=== PATIENT | male | born 1975 | race African-American/Black ===

== ENCOUNTER 2016-07-30 22:32 | Emergency (ER) | payer OTHER ==
[~2016-07-30] VITALS: Ht 190.5 cm; Wt 127.0 kg
[~2016-07-30 22:32] MED LIST: PROAIR HFA0.09 MG/Ac IH; UNK BP MED PO
[2016-07-30 22:47] VITALS: BP 131/91
--- NOTE | 2016-07-31 00:40 | NUR ---
PATIENT LEFT WITHOUT BEING SEEN BY DR. GOODRICH. NO FURTHER CARE PROVIDED FOR PATIENT.
== END 2016-07-31 00:40 | disposition left against medical advice (07) ==
LOC: MED 22:32
DX: R07.89 Other chest pain (principal); J45.909 Unspecified asthma, uncomplicated; I10 Essential (primary) hypertension; Z53.21 Procedure and treatment not carried out due to patient leaving prior to being seen by health care provider

== ENCOUNTER 2018-07-27 20:03 | Emergency (ER) | payer SELFPAY ==
[~2018-07-27] VITALS: Ht 190.5 cm; Wt 144.8 kg
[~2018-07-27 20:03] MED LIST changes: +ALBU-136 IH; -PROAIR HFA0.09 MG/Ac IH; -UNK BP MED PO
[2018-07-27 20:13] VITALS: BP 180/100
[2018-07-27 20:15] VITALS: BP 180/100
--- NOTE | 2018-07-27 20:16 | NUR ---
TO LOBBY A/W BED, AMBULATORY
--- NOTE | 2018-07-27 20:47 | NUR ---
PT TAKEN TO BED 8.
--- NOTE | 2018-07-27 20:48 | NUR ---
43 Y/O M PRESENTED TO ED WITH C/O R SHOULDER PAIN X1 WEEK. 7/10 PAIN, ACHING. DENIES INJURY. LIMITED ROM TO R SHOULDER. PALPABLE BILATERAL RADIAL PULSES. DENIES NUMBNESS AND TINGLING SENSATION. STARTED EXPERIENCING CHEST TIGHTNESS AND DIFFICULTY BREATHING X1 DAY. BILATERAL LUNG VIVAS CLEAR. INTERMINTENT BLURRED VISION. DENIES DIZZINESS AND LIGHTHEADEDNESS. ERMD NOTIFIED. WILL CONTINUE TO MONITOR.
[2018-07-27] MEDS ORDERED: KETOROLAC 60 MG/2 ML VIAL IM ONE (21:45)
--- NOTE | 2018-07-27 22:52 | NUR ---
Dr. Lundberg evaluating patient at bedside.
[2018-07-27] MEDS ORDERED: MORPHINE SULFATE 4 MG/ML SYR IM ONE (22:55)
--- NOTE | 2018-07-27 23:27 | NUR ---
Patient discharged with v/s stable. Written and verbal after care instructions given and explained. Patient alert, oriented and verbalized understanding of instructions. Ambulatory with steady gait. All questions addressed prior to discharge. ID band removed. Patient advised to follow up with PMD. Rx of Motrin and Valium given. Patient educated on indication of medication including possible reaction and side effects. Opportunity to ask questions provided and answered.
== END 2018-07-27 23:27 | disposition home or self-care (01) ==
LOC: MED 20:03
DX: M54.2 Cervicalgia (principal); M25.511 Pain in right shoulder; J45.909 Unspecified asthma, uncomplicated; I10 Essential (primary) hypertension; F17.200 Nicotine dependence, unspecified, uncomplicated; Z79.899 Other long term (current) drug therapy
CPT/HCPCS: 96372; 99283; J1885; J2270

== ENCOUNTER 2018-08-07 21:25 | Emergency (ER) | payer SELFPAY ==
[~2018-08-07] VITALS: Ht 190.5 cm; Wt 143.8 kg
[2018-08-07 21:33] VITALS: BP 157/90
--- NOTE | 2018-08-07 21:35 | NUR ---
TO LOBBY A/W BED, AMBULATORY
--- NOTE | 2018-08-07 23:09 | NUR ---
PT AMBULATED TO ER BED 02
--- NOTE | 2018-08-07 23:24 | NUR ---
BIB FAMILY REPORTS RIGHT SHOULDER PAIN 10/10 X 1 WEEK. STATES IT RADIATED TO NECK. LIMITED ROM DUE TO PAIN. NO SWELLING OR DISCOLORATION NOTED. DENIES OTHER SYMPTOMS AT THIS TIME.
[2018-08-07] MEDS ORDERED: KETOROLAC 60 MG/2 ML VIAL IM ONE (23:25)
[2018-08-08 00:10] VITALS: BP 142/78
--- NOTE | 2018-08-08 00:11 | NUR ---
Patient discharged with v/s stable. Written and verbal after care instructions given and explained. Patient alert, oriented and verbalized understanding of instructions. Ambulatory with steady gait. All questions addressed prior to discharge. ID band removed. Patient advised to follow up with PMD. Rx of MOTRIN, ROBAXIN given. Patient educated on indication of medication including possible reaction and side effects. Opportunity to ask questions provided and answered.
== END 2018-08-08 00:10 | disposition home or self-care (01) ==
LOC: MED 21:25
DX: M54.12 Radiculopathy, cervical region (principal); M25.511 Pain in right shoulder; J45.909 Unspecified asthma, uncomplicated; I10 Essential (primary) hypertension; Z79.899 Other long term (current) drug therapy
CPT/HCPCS: 73030; 96372; 99283; J1885

== ENCOUNTER 2019-01-02 19:26 | Emergency (ER) | payer MEDICAID ==
[~2019-01-02] VITALS: Ht 185.4 cm; Wt 145.1 kg
[2019-01-02 19:35] VITALS: BP 112/85
--- NOTE | 2019-01-02 21:21 | NUR ---
PT AMBULATED TO ER BED 10
--- NOTE | 2019-01-02 21:25 | NUR ---
43 YO M BIB SELF PRESENTS WITH ABSCESS TO RIGHT AXILLA X 2 WEEKS. PT STATES HAS GOTTEN PROGRESSIVELY WORSE. PT STATES HE WENT TO HIS PCP ON SATURDAY AND WAS GIVEN ABT X 3 DAYS. PT STATES IT HAS GOTTEN BIGGER AND HE FEELS WORSE WITH FEVER/CHILLS X 1 WEEK AND NAUSEA/DIARRHEA X 2 DAYS. DENIES DRAINAGE. -- PT AWAKE, A/O X 4. CALM, COOPERATIVE. ANSWERING QUESTIONS APPROPRIATELY. BEHAVIOR AGE APPROPRIATE. -- SKIN PINK, WARM, DRY. BREATHING EVEN, UNLABORED. PMH-- HTN, ASTHMA RX-- NIFEDIPINE 90 MG DAILY, ALBUTEROL INHALER TID
--- NOTE | 2019-01-02 22:00 | NUR ---
DR. GARCIA EVALUATING AT BEDSIDE.
[2019-01-02] MEDS ORDERED: LIDOCAINE/EPI 2% 1:100000 20 ML VIAL INJ ONE (22:15)
--- NOTE | 2019-01-02 22:23 | NUR ---
EKG PERFORMED AT BEDSIDE
[2019-01-02] MEDS ORDERED: LIDOCAINE MPF 1% - 5 mL VIAL 5 ML ONE (22:26)
--- NOTE | 2019-01-02 22:30 | NUR ---
LABS DRAWN AT BEDSIDE BY PHLEB.
[2019-01-02 23:00] LABS: BASOPHILS # (AUTO) 0.1 K/uL (0.00-0.22); BASOPHILS % (AUTO) 0.7 % (0.0-2.0); EOSINOPHILS # (AUTO) 0.2 K/uL (0-0.4); EOSINOPHILS % (AUTO) 2.3 % (0.0-4.0); HEMATOCRIT 49.8 % (36-52); HEMOGLOBIN 16.9 g/dL (12.0-18.0); LYMPHOCYTES # (AUTO) 2.5 K/uL (2.0-11.5); LYMPHOCYTES % (AUTO) 24.2 % (20.5-51.1); MEAN CORPUSCULAR HEMOGLOBIN 29 pg (27-31); MEAN CORPUSCULAR HGB CONC 34 g/dL (33-37); MEAN CORPUSCULAR VOLUME 85.3 fL (80-94); MONOCYTES # (AUTO) 1.1 K/uL (0.8-1.0); MONOCYTES % (AUTO) 10.5 % (1.7-9.3); NEUTROPHILS # (AUTO) 6.5 K/uL (1.8-7.7); NEUTROPHILS % (AUTO) 62.3 % (42.2-75.2); PLATELET COUNT (AUTO) 226 K/uL (140-450); RED BLOOD CELL COUNT(AUTO) 5.83 MIL/uL (4.20-6.10); RED CELL DISTRIBUTION WIDTH 13.7 % (11.6-13.7); WHITE BLOOD COUNT (AUTO) 10.4 K/uL (4.8-10.8)
[2019-01-02 23:21] LABS: ALBUMIN 3.8 g/dL (3.4-5.0); ANION GAP 14.6 (8-16); CARBON DIOXIDE 25.2 mmol/L (21-32); CREATININE 1.5 mg/dL (0.7-1.3); TOTAL BILIRUBIN 0.3 mg/dL (0.0-1.0)
[2019-01-02 23:23] LABS: POTASSIUM 2.8 mmol/L (3.5-5.1)
[2019-01-02 23:30] VITALS: BP 119/91
--- NOTE | 2019-01-02 23:30 | NUR ---
PT ASKING WHEN HE WILL BE SEEN BY THE DOCTOR. EXPLAINED TO PT THAT THERE IS ONLY ONE DOCTOR AVAILABLE AND HE WILL BE IN SOON POSSIBLE. PT VERBALIZED UNDERSTANDING. VSS AT THIS TIME.
--- NOTE | 2019-01-03 00:07 | NUR ---
PT STATES "I AM TIRED AND HUNGRY AND I WANT TO GO HOME". EXPLAINED TO PT THAT HE WILL BE LEAVING AMA. PT VERBALIZED UNDERSTANDING. DR. JASSO MADE AWARE. Patient does not wish to proceed with medical care recommended by Dr. Jasso. Patient given information related to possible complications, up to and including , which could occur as a result of leaving hospital at this time. Patient verbalizes understanding of risks involved leaving against medical advice. Patient has signed AMA form.
== END 2019-01-03 00:07 | disposition left against medical advice (07) ==
LOC: MED 19:26
DX: L02.412 Cutaneous abscess of left axilla (principal); R11.0 Nausea; R50.9 Fever, unspecified; J45.909 Unspecified asthma, uncomplicated; I10 Essential (primary) hypertension; Z79.899 Other long term (current) drug therapy
CPT/HCPCS: 36415; 71046; 80053; 83735; 83880; 84484; 85025; 93005; 99284; J2001

== ENCOUNTER 2019-01-15 22:15 | Emergency (ER) | payer MEDICAID ==
[~2019-01-15] VITALS: Ht 190.5 cm; Wt 142.4 kg
[2019-01-15 22:21] VITALS: BP 159/99
--- NOTE | 2019-01-15 22:25 | NUR ---
PT AMBULATED TO BED #11
--- NOTE | 2019-01-15 22:31 | NUR ---
43Y MALE, PRESENTED TO ED C/O ABSCESS TO LT GROIN AREA WITH PAIN OF 10/10 NON-RADIATING X1WEEK, PT REPORTED SITE HARD TO TOUCH, NO DRAINAGE NOTED. PT ALSO REPORTED HAVING FEVER EARLY THIS WEEK. PT TOOK MOTRIN AT 1600. EDMD MADE AWARE. WILL CONTINUE TO MONITOR CLOSELY. VESNA HX- HTN, ASHTMA
[2019-01-15] MEDS ORDERED: LIDOCAINE 1% 500 MG/ 50 ML VIAL INJ ONE (23:15)
--- NOTE | 2019-01-15 23:21 | NUR ---
Dr. Lundberg examining patient.
[2019-01-15] MEDS ORDERED: LIDOCAINE MPF 1% 5 ML ONE (23:27)
[2019-01-15 23:46] VITALS: BP 159/99
--- NOTE | 2019-01-15 23:46 | NUR ---
Patient discharged with v/s stable. Written and verbal after care instructions given and explained. Patient alert, oriented and verbalized understanding of instructions. Ambulatory with steady gait. All questions addressed prior to discharge. ID band removed. Patient advised to follow up with PMD. Rx of KEFLEX, MOTRIN AND NORCO WAS given. Patient educated on indication of medication including possible reaction and side effects. Opportunity to ask questions provided and answered. PT WAS GIVEN INFORMATION ON 24 HOUR PHARMACIES IN THE [facility] AREAS. PT UNDERSTOOD OUTPATIENT IN HOME CARE INSTRUCTIONS.
== END 2019-01-15 23:46 | disposition home or self-care (01) ==
LOC: MED 22:15
DX: L02.215 Cutaneous abscess of perineum (principal); J45.909 Unspecified asthma, uncomplicated; I10 Essential (primary) hypertension; F17.200 Nicotine dependence, unspecified, uncomplicated; Z79.899 Other long term (current) drug therapy
CPT/HCPCS: 46050; 99284; J2001; 56405

== ENCOUNTER 2019-07-20 14:33 | Emergency (ER) | payer MEDICAID ==
[~2019-07-20] VITALS: Ht 190.5 cm; Wt 140.6 kg
[2019-07-20 14:37] VITALS: BP 159/93
--- NOTE | 2019-07-20 14:55 | NUR ---
C/O R LOWER BACK PAIN RADIATING TO HIP REGION X 4 DAYS. SITE TENDER TO TOUCH. PAIN 8/10. PT STILL ABLE TO AMBULATE WITH STEADY GAIT. PT DENIES AB PAIN BUT STATES CONSTIPATION. LBM 3 DAYS AGO. ABDOMEN SOPFT AND LARGE BUT NONTENDER TO TOUCH. BOWEL SOUNDS ACTIVE. +DYSURIA AND 1 EPISODE OF POSSIBLE HEMATURIA PER PATIENT. PT DENIES INJURY, FEVER, CP, OR SOB. PT ALERT AND AWAKE. TOOK ADVIL OTC FOR PAIN PMH- HTN, ASTHMA RX-ALBUTEROL, NIFEDIPINE, LASIX
--- NOTE | 2019-07-20 15:00 | NUR ---
URINE DIP PERFORMED
[2019-07-20] MEDS ORDERED: IBUPROFEN 600 MG TAB PO ONE (15:05)
[2019-07-20] MEDS ORDERED: HYDROcodone/APAP 5/325 MG 1 TAB TAB PO ONE (15:05)
--- NOTE | 2019-07-20 15:13 | NUR ---
MOTRIN AND NORCO PO ADMINISTERED. PT STATES HE HAS RIDE HOME
--- NOTE | 2019-07-20 15:30 | NUR ---
NADR, PT REPORTS SOME RELIEF IN PAIN. 07/16
[2019-07-20 15:32] VITALS: BP 150/84
--- NOTE | 2019-07-20 15:32 | NUR ---
Patient discharged with v/s stable. Written and verbal after care instructions given and explained. Patient alert, oriented and verbalized understanding of instructions. Ambulatory with steady gait. All questions addressed prior to discharge. ID band removed. Patient advised to follow up with PMD. Rx of NORCO AND NAPROSYN given. Patient educated on indication of medication including possible reaction and side effects. Opportunity to ask questions provided and answered. PT INSTRUCTED TO NOT DRIVE AFTER TAKING NORCO IT MAY CAUSE DROWSINESS AND IMPAIR DRIVING
== END 2019-07-20 15:32 | disposition home or self-care (01) ==
LOC: MED 14:33
DX: M54.5 Low back pain (principal); I10 Essential (primary) hypertension; R31.9 Hematuria, unspecified; J45.909 Unspecified asthma, uncomplicated; Z79.899 Other long term (current) drug therapy
CPT/HCPCS: 81002; 99283

== ENCOUNTER 2019-10-19 12:21 | Emergency (ER) | payer MEDICAID ==
[~2019-10-19] VITALS: Ht 190.5 cm; Wt 143.3 kg
[2019-10-19 12:33] VITALS: BP 133/96
--- NOTE | 2019-10-19 12:40 | NUR ---
44 YO MALE PT WITH ASTHMA HX C/O LEFT-SIDED CHEST PAIN WITH PRESSURE SENSATION RADIATING TO LEFT NECK AND LEFT SHOULDER 11/15 ACCOMPANIED BY NAUSEA AND SOB SINCE YESTERDAY MORNING. PT ALSO C/O MOIST COUGH, WATERY DIARRHEA WITH 3-4 EPISODES DAILY FOR THE PAST ONE WEEK. DENIES FEVER OR SORE THROAT. AAOX4 WITH EVEN AND STEADY GAIT; VSS; PATIENT POSITIONED FOR COMFORT; HOB ELEVATED; BEDRAILS UP X1; BED DOWN. ER MD MADE AWARE OF PT STATUS.
--- NOTE | 2019-10-19 12:48 | NUR ---
XRAY IS AT BEDSIDE.
--- NOTE | 2019-10-19 12:59 | NUR ---
Dr. Fernandez is evaluating the patient at bedside.
[2019-10-19] MEDS ORDERED: KETOROLAC 60 MG/2 ML VIAL IM ONE (13:05)
[2019-10-19] MEDS ORDERED: ASPIRIN 81 MG TAB.CHEW PO ONE (13:05)
--- NOTE | 2019-10-19 13:10 | NUR ---
LAB IS AT BEDSIDE.
[2019-10-19 13:21] LABS: BASOPHILS % (AUTO) 0.5 % (0.0-2.0); EOSINOPHILS # (AUTO) 0.2 K/uL (0-0.4); HEMATOCRIT 49.1 % (36-52); HEMOGLOBIN 16.5 g/dL (12.0-18.0); LYMPHOCYTES # (AUTO) 2.1 K/uL (2.0-11.5); LYMPHOCYTES % (AUTO) 25.1 % (20.5-51.1); MEAN CORPUSCULAR HEMOGLOBIN 29 pg (27-31); MEAN CORPUSCULAR HGB CONC 34 g/dL (33-37); MEAN CORPUSCULAR VOLUME 84.7 fL (80-94); MONOCYTES # (AUTO) 0.9 K/uL (0.8-1.0); MONOCYTES % (AUTO) 10.8 % (1.7-9.3); NEUTROPHILS # (AUTO) 5.1 K/uL (1.8-7.7); NEUTROPHILS % (AUTO) 60.6 % (42.2-75.2); PLATELET COUNT (AUTO) 198 K/uL (140-450); RED BLOOD CELL COUNT(AUTO) 5.79 MIL/uL (4.20-6.10); RED CELL DISTRIBUTION WIDTH 14.1 % (11.6-13.7); WHITE BLOOD COUNT (AUTO) 8.4 K/uL (4.8-10.8)
[2019-10-19 13:39] LABS: ALBUMIN 3.6 g/dL (3.4-5.0); ANION GAP 14.4 (8-16); CARBON DIOXIDE 26.2 mmol/L (21-32); CREATININE 1.3 mg/dL (0.6-1.3); POTASSIUM 3.6 mmol/L (3.5-5.1); TOTAL BILIRUBIN 0.5 mg/dL (0.0-1.0)
[2019-10-19 14:25] VITALS: BP 141/85
--- NOTE | 2019-10-19 14:25 | NUR ---
Patient discharged with v/s stable. Written and verbal after care instructions given and explained. Patient alert, oriented and verbalized understanding of instructions. Ambulatory with steady gait. All questions addressed prior to discharge. ID band removed. Patient advised to follow up with PMD. Rx of Albuterol, Naprosyn, and Prednisone given. Patient educated on indication of medication including possible reaction and side effects. Opportunity to ask questions provided and answered.
== END 2019-10-19 14:25 | disposition home or self-care (01) ==
LOC: MED 12:21
DX: R07.9 Chest pain, unspecified (principal); J45.909 Unspecified asthma, uncomplicated; F17.200 Nicotine dependence, unspecified, uncomplicated; I10 Essential (primary) hypertension; Z71.6 Tobacco abuse counseling; Z96.611 Presence of right artificial shoulder joint
CPT/HCPCS: 36415; 71045; 80053; 83880; 84484; 85025; 93005; 96372; 99285; J1885; Q0092

== ENCOUNTER 2020-01-11 16:17 | Emergency (ER) | payer MEDICAID ==
[~2020-01-11] VITALS: Ht 190.5 cm; Wt 148.8 kg
[2020-01-11 16:27] VITALS: BP 159/64
--- NOTE | 2020-01-11 16:51 | NUR ---
44 y/o male from home c/o chest pain radiating to left side of neck since yesterday. Pt states he was sitting upright when pain began. Denies N/V. States 10/10 constant sharp pain with mild SOB. RR even and unlabored. Pt sitting upright on cellphone. VSS medhx: asthma, CHF
--- NOTE | 2020-01-11 16:52 | NUR ---
Dr Brock at bedside examining pt
[2020-01-11] MEDS ORDERED: ASPIRIN 325 MG TAB PO ONE (17:05)
[2020-01-11] MEDS ORDERED: NITROGLYCERIN 0.4 MG TAB SL ONE (17:05)
[2020-01-11 17:38] LABS: BASOPHILS # (AUTO) 0.1 K/uL (0.00-0.22); EOSINOPHILS # (AUTO) 0.2 K/uL (0-0.4); HEMATOCRIT 46.5 % (36-52); LYMPHOCYTES # (AUTO) 2.3 K/uL (2.0-11.5); LYMPHOCYTES % (AUTO) 32.6 % (20.5-51.1); MEAN CORPUSCULAR HEMOGLOBIN 29 pg (27-31); MEAN CORPUSCULAR HGB CONC 35 g/dL (33-37); MEAN CORPUSCULAR VOLUME 83.7 fL (80-94); MONOCYTES # (AUTO) 0.9 K/uL (0.8-1.0); MONOCYTES % (AUTO) 12.1 % (1.7-9.3); NEUTROPHILS # (AUTO) 3.7 K/uL (1.8-7.7); NEUTROPHILS % (AUTO) 51.3 % (42.2-75.2); PLATELET COUNT (AUTO) 187 K/uL (140-450); RED BLOOD CELL COUNT(AUTO) 5.55 MIL/uL (4.20-6.10); RED CELL DISTRIBUTION WIDTH 14.3 % (11.6-13.7); WHITE BLOOD COUNT (AUTO) 7.2 K/uL (4.8-10.8)
[2020-01-11 17:46] LABS: ANION GAP 14.3 (8-16); CARBON DIOXIDE 24.2 mmol/L (21-32); CREATININE 1.4 mg/dL (0.6-1.3); POTASSIUM 3.5 mmol/L (3.5-5.1)
[2020-01-11 17:52] LABS: ALBUMIN 3.6 g/dL (3.4-5.0); TOTAL BILIRUBIN 0.3 mg/dL (0.0-1.0)
--- NOTE | 2020-01-11 18:10 | NUR ---
Pt resting in bed awake and alert. States 4/10 tolerable chest pain. Positioned for comfort. VSS. Will continue to monitor
[2020-01-11 18:18] LABS: CREATINE KINASE MB 2.5 ng/mL (0-3.6)
[2020-01-11] MEDS ORDERED: FUROSEMIDE 20 MG/2 ML VIAL IVP ONE (20:00)
--- NOTE | 2020-01-11 20:02 | NUR ---
PT WAS THIRSTY AND RECIEVED SOME WATER. PT TOLERATED WELL
[2020-01-11 20:05] VITALS: BP 128/72
--- NOTE | 2020-01-11 21:05 | NUR ---
Patient discharged with v/s stable. Written and verbal after care instructions given and explained. Patient verbalized understanding. Ambulatory with steady gait. All questions addressed prior to discharge. LABS/EXAMS COPY GIVEN TO PT. Advised to follow up with PMD.
== END 2020-01-11 21:05 | disposition home or self-care (01) ==
LOC: MED 16:17
DX: R07.9 Chest pain, unspecified (principal); I50.9 Heart failure, unspecified; I10 Essential (primary) hypertension; J45.909 Unspecified asthma, uncomplicated; Z79.899 Other long term (current) drug therapy
CPT/HCPCS: 36415; 71045; 80053; 82550; 82553; 83690; 83880; 84484; 85025; 93005; 96374; 99285; J1940; Q0092

== ENCOUNTER 2020-06-08 20:19 | Emergency (ER) | payer MEDICAID ==
[~2020-06-08] VITALS: Ht 190.5 cm; Wt 149.7 kg
[2020-06-08 20:29] VITALS: BP 176/92
--- NOTE | 2020-06-08 20:30 | NUR ---
TO BED AMBULATORY
--- NOTE | 2020-06-08 20:42 | NUR ---
PATIENT 44 Y/O MALE BIB SELF FOR C/O 10 PELVIC PAIN WIRH URINARY RETANTION X 1 MONTH. PER PATIENT CAME TO ER D/T RECOMMENDATIONS FROM PRIMARY MD TO RECIVE BLADDER SCANNER TEST WITH IV DIURETICS FOR URINARY RETENSION TREATMENT. PATIENT RX AT HOME LASIX 80MG PO. PER PATIENT ONLY ABLE TO URINATE X 2 TIMES A DAY AND "GAINED ALMOST 30LBS IN 1 MONTH." MEDHX: HTN, ASTHMA, CHF ALLERGIES: RX
--- NOTE | 2020-06-08 21:14 | NUR ---
ekg performed at bedside. ekg reads sinus rhythm @ 85
--- NOTE | 2020-06-08 21:20 | NUR ---
IV PLACED IN R HAND, LABS DRAWN AND GIVEN TO SKILLED NURSING FACILITIES PROFESSIONAL.
[2020-06-08 21:28] LABS: BASOPHILS # (AUTO) 0.1 K/uL (0.00-0.22); BASOPHILS % (AUTO) 0.9 % (0.0-2.0); EOSINOPHILS # (AUTO) 0.3 K/uL (0-0.4); EOSINOPHILS % (AUTO) 3.2 % (0.0-4.0); HEMATOCRIT 47.3 % (36-52); HEMOGLOBIN 16.1 g/dL (12.0-18.0); LYMPHOCYTES # (AUTO) 2.7 K/uL (2.0-11.5); LYMPHOCYTES % (AUTO) 30.4 % (20.5-51.1); MEAN CORPUSCULAR HEMOGLOBIN 29 pg (27-31); MEAN CORPUSCULAR HGB CONC 34 g/dL (33-37); MEAN CORPUSCULAR VOLUME 84.7 fL (80-94); MONOCYTES # (AUTO) 0.9 K/uL (0.8-1.0); MONOCYTES % (AUTO) 10.2 % (1.7-9.3); NEUTROPHILS # (AUTO) 4.9 K/uL (1.8-7.7); NEUTROPHILS % (AUTO) 55.3 % (42.2-75.2); PLATELET COUNT (AUTO) 187 K/uL (140-450); RED BLOOD CELL COUNT(AUTO) 5.59 MIL/uL (4.20-6.10); WHITE BLOOD COUNT (AUTO) 8.8 K/uL (4.8-10.8)
--- NOTE | 2020-06-08 21:41 | NUR ---
XRAY AT BEDSIDE.
[2020-06-08 21:42] LABS: ALBUMIN 3.8 g/dL (3.4-5.0); ANION GAP 12.4 (8-16); CARBON DIOXIDE 27.3 mmol/L (21-32); CREATININE 1.3 mg/dL (0.6-1.3); POTASSIUM 3.7 mmol/L (3.5-5.1); TOTAL BILIRUBIN 0.3 mg/dL (0.0-1.0)
[2020-06-08] MEDS ORDERED: FUROSEMIDE 40 MG/4 ML VIAL IVP ONE (21:45)
--- NOTE | 2020-06-08 21:45 | NUR ---
BLADDER SCANNER USED ON PATIENT. 270 ML OF URINE NOTED IN BLADDER. ERMD MADE AWARE. NO NEW ORDERS AT THIS TIME.
--- NOTE | 2020-06-08 23:00 | NUR ---
PATIENT ABLE TO VOID APPROXIMATELY 150ML OF YELLOW URINE IN URINAL.
[2020-06-08 23:10] VITALS: BP 155/89
--- NOTE | 2020-06-08 23:10 | NUR ---
Patient discharged with v/s stable. Written and verbal after care instructions given and explained. Patient verbalized understanding. Ambulatory with steady gait. All questions addressed prior to discharge. Advised to follow up with PMD.
== END 2020-06-08 23:10 | disposition home or self-care (01) ==
LOC: MED 20:19
DX: I11.0 Hypertensive heart disease with heart failure (principal); I50.89 Other heart failure; E11.9 Type 2 diabetes mellitus without complications; J45.909 Unspecified asthma, uncomplicated; Z95.1 Presence of aortocoronary bypass graft
CPT/HCPCS: 36415; 71045; 80053; 85025; 93005; 96374; 99285; J1940

== ENCOUNTER 2020-06-20 12:23 | Emergency (ER) | payer OTHER, MEDICAID ==
[~2020-06-20] VITALS: Ht 185.4 cm; Wt 149.7 kg
[2020-06-20 12:31] VITALS: BP 115/74
--- NOTE | 2020-06-20 12:34 | NUR ---
Pt ambulated to ER bed 5.
--- NOTE | 2020-06-20 12:38 | NUR ---
45 Y/O MALE FROM HOME REFERRED BY PRIMARY CARE FOR URINARY RETENTION. PT STATES HE HAS HAD DIFFICULTY URINATING X WKS. HAS NOT URINATED TODAY. PT STATES DR GASTELUM WANTS PT ADMITTED. DENIES PAIN AT THIS TIME. MEDHX: HTN, CHF, ASTHMA
--- NOTE | 2020-06-20 13:00 | NUR ---
Dr. Tucker at pt bedside for further evaluation.
--- NOTE | 2020-06-20 13:12 | NUR ---
Approx 500cc urine in bladder per bladder scanner.
--- NOTE | 2020-06-20 13:15 | NUR ---
Xray at bedside
--- NOTE | 2020-06-20 13:23 | NUR ---
EMT at bedside for EKG.
[2020-06-20 13:26] LABS: BASOPHILS # (AUTO) 0.1 K/uL (0.00-0.22); BASOPHILS % (AUTO) 0.9 % (0.0-2.0); EOSINOPHILS # (AUTO) 0.2 K/uL (0-0.4); EOSINOPHILS % (AUTO) 2.9 % (0.0-4.0); HEMATOCRIT 48.9 % (36-52); HEMOGLOBIN 16.6 g/dL (12.0-18.0); LYMPHOCYTES # (AUTO) 1.6 K/uL (2.0-11.5); LYMPHOCYTES % (AUTO) 24.6 % (20.5-51.1); MEAN CORPUSCULAR HEMOGLOBIN 29 pg (27-31); MEAN CORPUSCULAR HGB CONC 34 g/dL (33-37); MEAN CORPUSCULAR VOLUME 84.9 fL (80-94); MONOCYTES # (AUTO) 0.6 K/uL (0.8-1.0); MONOCYTES % (AUTO) 9.4 % (1.7-9.3); NEUTROPHILS # (AUTO) 4.1 K/uL (1.8-7.7); NEUTROPHILS % (AUTO) 62.2 % (42.2-75.2); PLATELET COUNT (AUTO) 189 K/uL (140-450); RED BLOOD CELL COUNT(AUTO) 5.75 MIL/uL (4.20-6.10); RED CELL DISTRIBUTION WIDTH 14.3 % (11.6-13.7); WHITE BLOOD COUNT (AUTO) 6.7 K/uL (4.8-10.8)
--- NOTE | 2020-06-20 13:30 | NUR ---
Patient is resting in position of comfort. Respirations even/unlabored. athletic monitor remains in place. Bed locked in lowest position, side rails x 1, call light in reach.
--- NOTE | 2020-06-20 13:30 | NUR ---
Patient able to urinate 250cc of clear/yellow urine at bedside into urinal. Urine sample collected, walked to lab and handed to mandy Rodriguez tech. Remaining voided urine discarded.
[2020-06-20 13:44] LABS: ALBUMIN 3.7 g/dL (3.4-5.0); ANION GAP 11.2 (8-16); CARBON DIOXIDE 27.7 mmol/L (21-32); CREATININE 1.4 mg/dL (0.6-1.3); POTASSIUM 3.9 mmol/L (3.5-5.1); TOTAL BILIRUBIN 0.4 mg/dL (0.0-1.0)
[2020-06-20 13:55] LABS: PROTHROMBIN TIME 9.9 secs (10.8-13.4)
--- NOTE | 2020-06-20 14:01 | NUR ---
# 16 FR Espitia catheter with 10 ml utilizing sterile technique. Immediate return of 10 ml clear/yellow urine noted. Bedside drainage bag placed below level of bladder. Urine sample collected and sent to lab. Pt tolerated procedure well.
[2020-06-20] MEDS ORDERED: DOXY-487 PO (14:19)
--- NOTE | 2020-06-20 14:22 | NUR ---
Dr. Tucker is reevaluating patient at bedside.
--- NOTE | 2020-06-20 14:25 | NUR ---
Patient is resting in position of comfort. Respirations even/unlabored. monitor tech remains in place. Bed locked in lowest position, side rails x 1, call light in reach.
--- NOTE | 2020-06-20 14:30 | NUR ---
Catheter leg bag applied to patient. Patient advised of self-care instructions at home for leg bag, including how to drain and cap bag. Pt successfully verbalized care instructions.
[2020-06-20 14:44] VITALS: BP 115/74
--- NOTE | 2020-06-20 14:44 | NUR ---
Patient discharged with v/s stable. Written and verbal after care instructions given and explained. Patient alert, oriented and verbalized understanding of instructions. Ambulatory with steady gait. All questions addressed prior to discharge. ID band removed. Patient advised to follow up with PMD. Rx of DOXYCYCLINE 100MG BID PO FOR 7DAYS given. Patient educated on indication of medication including possible reaction and side effects. Opportunity to ask questions provided and answered.
== END 2020-06-20 14:44 | disposition home or self-care (01) ==
LOC: MED 12:23
DX: R33.9 Retention of urine, unspecified (principal); J45.909 Unspecified asthma, uncomplicated; I11.0 Hypertensive heart disease with heart failure; I50.9 Heart failure, unspecified; F17.210 Nicotine dependence, cigarettes, uncomplicated; Z79.899 Other long term (current) drug therapy
CPT/HCPCS: 36415; 71045; 80053; 83605; 83880; 84484; 85025; 85610; 85730; 87040; 93005; 99285

== ENCOUNTER 2020-06-22 07:56 | Emergency (ER) | payer MEDICAID, OTHER ==
[~2020-06-22] VITALS: Ht 188 cm; Wt 147.0 kg
[~2020-06-22 07:56] MED LIST changes: +DOXY-487 PO
[2020-06-22 08:02] VITALS: BP 170/105
--- NOTE | 2020-06-22 08:15 | NUR ---
45 Y/O MALE PRESENTS TO ER TO HAVE RUIZ CATHETER REMOVED. PATIENT STATES THAT CATHETER WAS PLACED ON SATURDAY D/T URINARY RETENTION, PATIENT STATES HE HAD 250CC IN BLADDER THAT HE COULD NOT URINATE. RUIZ CATH IS GIVING PATIENT DISCOMFORT AT THIS TIME AND PATIENT STATES THAT PRIMARY CARE PROVIDER INSTRUCTED PATIENT TO COME TO ER AND HAVE CATHETER REMOVED.
--- NOTE | 2020-06-22 08:30 | NUR ---
RUIZ CATHETER TAKEN OUT, 10CC REMOVED. PT TOLERATED WELL
[2020-06-22 08:57] VITALS: BP 170/105
== END 2020-06-22 08:58 | disposition home or self-care (01) ==
LOC: MED 07:56
DX: N40.0 Benign prostatic hyperplasia without lower urinary tract symptoms (principal); F17.290 Nicotine dependence, other tobacco product, uncomplicated; J45.909 Unspecified asthma, uncomplicated; I11.0 Hypertensive heart disease with heart failure; I50.9 Heart failure, unspecified; Z87.442 Personal history of urinary calculi; Z79.899 Other long term (current) drug therapy; Z98.890 Other specified postprocedural states
CPT/HCPCS: 99281

== ENCOUNTER 2020-08-04 22:21 | Emergency (ER) | payer MEDICAID ==
[~2020-08-04] VITALS: Ht 190.5 cm; Wt 153.8 kg
[~2020-08-04 22:21] MED LIST changes: +ALBU-118 IH; -ALBU-136 IH
--- NOTE | 2020-08-04 22:30 | NUR ---
PATIENT PRESENTS TO ED WITH C/O LEFT CHEST, "RIB" PAIN RADIATING TO LEFT BACK X 1.5 WEEKS . PT STATES "IT FEELS LIKE WHEN I HAD PNEUMONIA" . DENIES N/V/D; SKIN IS PINK/WARM/DRY; AAOX4 WITH EVEN AND STEADY GAIT; LUNGS CLEAR BL; HR EVEN AND REGULAR; PT DENIES ANY FEVER, OR COUGH AT THIS TIME; VSS; PATIENT POSITIONED FOR COMFORT; HOB ELEVATED; BEDRAILS UP X2; BED DOWN.ATTACHED TO LOADER UNLOADER ER MD MADE AWARE OF PT STATUS. PMH: CHF, KIDNEY STONES
[2020-08-04 22:36] VITALS: BP 182/107
--- NOTE | 2020-08-04 22:42 | NUR ---
PATIENT AMBUALTED TO BED 3 WITH STEADY GAIT.
--- NOTE | 2020-08-04 22:45 | NUR ---
Dr. Asencio examining patient.
[2020-08-04 23:35] LABS: BASOPHILS # (AUTO) 0.2 K/uL (0.00-0.22); BASOPHILS % (AUTO) 2.3 % (0.0-2.0); EOSINOPHILS # (AUTO) 0.3 K/uL (0-0.4); HEMATOCRIT 44.9 % (36-52); HEMOGLOBIN 15.6 g/dL (12.0-18.0); LYMPHOCYTES # (AUTO) 2.3 K/uL (2.0-11.5); LYMPHOCYTES % (AUTO) 27.6 % (20.5-51.1); MEAN CORPUSCULAR HEMOGLOBIN 29 pg (27-31); MEAN CORPUSCULAR HGB CONC 35 g/dL (33-37); MONOCYTES # (AUTO) 0.7 K/uL (0.8-1.0); MONOCYTES % (AUTO) 8.2 % (1.7-9.3); NEUTROPHILS % (AUTO) 58.9 % (42.2-75.2); PLATELET COUNT (AUTO) 195 K/uL (140-450); RED BLOOD CELL COUNT(AUTO) 5.35 MIL/uL (4.20-6.10); RED CELL DISTRIBUTION WIDTH 13.6 % (11.6-13.7); WHITE BLOOD COUNT (AUTO) 8.5 K/uL (4.8-10.8)
[2020-08-04 23:39] LABS: ALBUMIN 3.5 g/dL (3.4-5.0); ANION GAP 12.1 (8-16); CARBON DIOXIDE 26.6 mmol/L (21-32); CREATININE 1.7 mg/dL (0.6-1.3); POTASSIUM 3.7 mmol/L (3.5-5.1); TOTAL BILIRUBIN 0.2 mg/dL (0.0-1.0)
[2020-08-04] MEDS: NACL 0.9% 1,000 ML IV ONE (23:48)
[2020-08-04] MEDS: KETOROLAC 15 MG/ML VIAL IVP ONE (23:49)
--- NOTE | 2020-08-05 00:26 | NUR ---
PT TAKEN TO CT
--- NOTE | 2020-08-05 00:33 | NUR ---
PT RETURN FROM CT
[2020-08-05] MEDS: MORPHINE SULFATE 4 MG/ML SYR IVP ONE (01:11)
[2020-08-05] MEDS: ONDANSETRON 4 MG/2 ML VIAL IVP ONE (01:12)
[2020-08-05] MEDS: NACL 0.9% 1,000 ML IV ONE (01:59)
--- NOTE | 2020-08-05 02:05 | NUR ---
VOIDED, UA TO LAB
[2020-08-05 02:24] LABS: APPEARANCE,URINE CLEAR (CLEAR); BILIRUBIN,URINE NEGATIVE (NEGATIVE); BLOOD, URINE NEGATIVE (NEGATIVE); COLOR,URINE YELLOW (YELLOW); LEUKOCYTE ESTERASE ,URINE NEGATIVE (NEGATIVE); NITRITE, URINE NEGATIVE (NEGATIVE); UGLUCOSE NEGATIVE (NEGATIVE)
[2020-08-05] MEDS: HYDROmorphone PFS 2 MG/ML SYR IVP ONE (03:35)
--- NOTE | 2020-08-05 03:35 | NUR ---
ADDITIONAL PAIN MED ORDERED
[2020-08-05] MEDS ORDERED: ACET-8386 PO (03:53)
[2020-08-05 04:00] VITALS: BP 149/80
--- NOTE | 2020-08-05 04:00 | NUR ---
Patient discharged with v/s stable. Written and verbal after care instructions given and explained. Patient alert, oriented and verbalized understanding of instructions. Ambulatory with steady gait. All questions addressed prior to discharge. ID band removed. Patient advised to follow up with PMD. Rx of HYDROCODONE given. Patient educated on indication of medication including possible reaction and side effects. Opportunity to ask questions provided and answered.
--- NOTE | 2020-08-09 02:30 | NUR ---
LATE ENTRY- NORMAL SALINE 0.9% DISCONTINUED AT 0300
== END 2020-08-05 04:00 | disposition home or self-care (01) ==
LOC: MED 22:21
DX: R07.9 Chest pain, unspecified (principal); R10.9 Unspecified abdominal pain; R05 Cough; J45.909 Unspecified asthma, uncomplicated; I11.9 Hypertensive heart disease without heart failure; Z79.899 Other long term (current) drug therapy
CPT/HCPCS: 36415; 71045; 74176; 80053; 81003; 83690; 83880; 84484; 85025; 85379; 93005; 96361; 96374; 96375; 99291; J1170; J1885; J2270; J2405; J7030

== ENCOUNTER 2020-12-13 09:19 | Emergency (ER) | payer MEDICAID ==
[~2020-12-13] VITALS: Ht 190.5 cm; Wt 131.5 kg
[~2020-12-13 09:19] MED LIST changes: +ACET-8386 PO
[2020-12-13 09:58] VITALS: BP 155/92
--- NOTE | 2020-12-13 10:03 | NUR ---
RADHA. HANDED ON URINE CUP.
[2020-12-13 13:32] LABS: ALBUMIN 3.9 g/dL (3.4-5.0); ANION GAP 8.2 (8-16); CARBON DIOXIDE 29.4 mmol/L (21-32); CREATININE 1.4 mg/dL (0.6-1.3); POTASSIUM 3.6 mmol/L (3.5-5.1); TOTAL BILIRUBIN 0.5 mg/dL (0.0-1.0)
[2020-12-13 13:36] LABS: PROTHROMBIN TIME 9.7 secs (10.8-13.4)
[2020-12-13 13:39] LABS: BASOPHILS # (AUTO) 0.1 K/uL (0.00-0.22); BASOPHILS % (AUTO) 1.3 % (0.0-2.0); EOSINOPHILS # (AUTO) 0.1 K/uL (0-0.4); EOSINOPHILS % (AUTO) 1.7 % (0.0-4.0); HEMATOCRIT 48.9 % (36-52); HEMOGLOBIN 16.8 g/dL (12.0-18.0); LYMPHOCYTES # (AUTO) 2.1 K/uL (2.0-11.5); LYMPHOCYTES % (AUTO) 28.4 % (20.5-51.1); MEAN CORPUSCULAR HEMOGLOBIN 29 pg (27-31); MEAN CORPUSCULAR HGB CONC 34 g/dL (33-37); MEAN CORPUSCULAR VOLUME 83.9 fL (80-94); MONOCYTES # (AUTO) 0.7 K/uL (0.8-1.0); MONOCYTES % (AUTO) 9.2 % (1.7-9.3); NEUTROPHILS # (AUTO) 4.4 K/uL (1.8-7.7); NEUTROPHILS % (AUTO) 59.4 % (42.2-75.2); PLATELET COUNT (AUTO) 206 K/uL (140-450); RED BLOOD CELL COUNT(AUTO) 5.83 MIL/uL (4.20-6.10); RED CELL DISTRIBUTION WIDTH 14.1 % (11.6-13.7); WHITE BLOOD COUNT (AUTO) 7.3 K/uL (4.8-10.8)
--- NOTE | 2020-12-13 14:00 | NUR ---
DR CRENSHAW ATTEMPTED TO CALL PT. PT NOT FOUND IN LOBBY
--- NOTE | 2020-12-13 14:00 | NUR ---
William sousa in [facility] - 12/13/[address] at [email or web address] CRENSHAW ATTEMPTED TO CALL PT. PT NOT FOUND IN LOBDAVID
--- NOTE | 2020-12-13 14:21 | NUR ---
PATIENT LEFT WITHOUT BEING SEEN BY DR. CRENSHAW. NO FURTHER CARE PROVIDED FOR PATIENT.
--- NOTE | 2020-12-13 14:21 | NUR ---
2ND ATTEMPT AT CALLING PT. NO ANSWER
--- NOTE | 2020-12-13 14:21 | NUR ---
William sousa in [facility] - 12/13/20 at 1422 by [email or web address] PATIENT LEFT WITHOUT BEING SEEN BY DR. CHIN. NO FURTHER CARE PROVIDED FOR PATIENT.
== END 2020-12-13 14:21 | disposition left against medical advice (07) ==
LOC: MED 09:19
DX: N48.89 Other specified disorders of penis (principal); J45.909 Unspecified asthma, uncomplicated; I11.0 Hypertensive heart disease with heart failure; I50.9 Heart failure, unspecified; Z79.899 Other long term (current) drug therapy; Z53.21 Procedure and treatment not carried out due to patient leaving prior to being seen by health care provider
CPT/HCPCS: 36415; 80053; 81002; 85025; 85610; 85730; 86886; 86900; 86901; 99281

== ENCOUNTER 2021-02-01 08:42 | Emergency (ER) | payer MEDICAID ==
[~2021-02-01] VITALS: Ht 190.5 cm; Wt 149.4 kg
[2021-02-01 08:46] VITALS: BP 159/95
--- NOTE | 2021-02-01 09:20 | NUR ---
45/M BIB SELF WITH C/O RIGHT FACE, RIGHT ARM AND CHEST PAIN SINCE YESTERDAY AFTERNOON. PATIENT STATES WHILE AT REST HE BEGAN HAVING PRESSURE LIKE PAIN AND HAS EXPERIENCED LITTLE RELIEF SINCE. REPORTS TAKING ONE NITRO THIS MORNING STATING HE DID NOT EXPERIENCE RELIEF, PATIENT DENIES SOB, FEVER, CHILLS OR N/V/D.
[2021-02-01] MEDS ORDERED: ONDANSETRON 4 MG/2 ML VIAL IVP ONE (09:25)
[2021-02-01] MEDS ORDERED: MORPHINE SULFATE 4 MG/ML SYR IVP ONE (09:25)
[2021-02-01 10:14] LABS: BASOPHILS # (AUTO) 0.1 K/uL (0.00-0.22); BASOPHILS % (AUTO) 0.9 % (0.0-2.0); EOSINOPHILS # (AUTO) 0.1 K/uL (0-0.4); HEMATOCRIT 50.1 % (36-52); HEMOGLOBIN 17.2 g/dL (12.0-18.0); LYMPHOCYTES # (AUTO) 1.6 K/uL (2.0-11.5); MEAN CORPUSCULAR HEMOGLOBIN 29 pg (27-31); MEAN CORPUSCULAR HGB CONC 34 g/dL (33-37); MEAN CORPUSCULAR VOLUME 84.7 fL (80-94); MONOCYTES # (AUTO) 0.6 K/uL (0.8-1.0); MONOCYTES % (AUTO) 9.2 % (1.7-9.3); NEUTROPHILS # (AUTO) 4.1 K/uL (1.8-7.7); NEUTROPHILS % (AUTO) 62.9 % (42.2-75.2); PLATELET COUNT (AUTO) 195 K/uL (140-450); RED BLOOD CELL COUNT(AUTO) 5.91 MIL/uL (4.20-6.10); WHITE BLOOD COUNT (AUTO) 6.6 K/uL (4.8-10.8)
[2021-02-01 10:25] LABS: ALBUMIN 3.7 g/dL (3.4-5.0); CARBON DIOXIDE 25.2 mmol/L (21-32); CREATININE 1.2 mg/dL (0.6-1.3); POTASSIUM 4.2 mmol/L (3.5-5.1); TOTAL BILIRUBIN 0.4 mg/dL (0.0-1.0)
--- NOTE | 2021-02-01 10:30 | NUR ---
PATIENT RESTING IN BED, LIGHTS OFF FOR COMFORT. ON BEDSIDE BRIDGE MAINTAINER, VSS. WILL CONTINUE TO MONITOR.
[2021-02-01] MEDS ORDERED: HYDROmorphone PFS 2 MG/ML SYR IVP ONE (12:10)
[2021-02-01 12:56] VITALS: BP 154/74
== END 2021-02-01 12:56 | disposition home or self-care (01) ==
LOC: MED 08:42
DX: M54.2 Cervicalgia (principal); R07.9 Chest pain, unspecified; M25.511 Pain in right shoulder; I50.9 Heart failure, unspecified; I11.0 Hypertensive heart disease with heart failure; J45.909 Unspecified asthma, uncomplicated; Z90.49 Acquired absence of other specified parts of digestive tract; Z79.899 Other long term (current) drug therapy
CPT/HCPCS: 36415; 71045; 80053; 83880; 84484; 85025; 96374; 96375; 99285; J1170; J2270; J2405; Q0092; 93005

== ENCOUNTER 2021-04-23 20:25 | Emergency (ER) | payer MEDICAID ==
[~2021-04-23] VITALS: Ht 182.9 cm; Wt 136.1 kg
[2021-04-23 20:32] VITALS: BP 146/91
--- NOTE | 2021-04-23 20:46 | NUR ---
PT TO LOBBY.
--- NOTE | 2021-04-23 21:52 | NUR ---
PT STATED CHEST PAIN IS WORSENING. DR CHIN MADE AWARE.
[2021-04-23] MEDS ORDERED: ASPIRIN 325 MG TAB PO ONE (22:55)
--- NOTE | 2021-04-23 23:11 | NUR ---
SWAB COLLECTED AND GIVEN TO CHALO FROM LAB.
[2021-04-23 23:17] LABS: BASOPHILS # (AUTO) 0.3 K/uL (0.00-0.22); EOSINOPHILS # (AUTO) 0.2 K/uL (0-0.4); EOSINOPHILS % (AUTO) 2.1 % (0.0-4.0); HEMATOCRIT 53.3 % (36-52); HEMOGLOBIN 18.5 g/dL (12.0-18.0); LYMPHOCYTES # (AUTO) 2.3 K/uL (2.0-11.5); LYMPHOCYTES % (AUTO) 21.2 % (20.5-51.1); MEAN CORPUSCULAR HEMOGLOBIN 29 pg (27-31); MEAN CORPUSCULAR HGB CONC 35 g/dL (33-37); MEAN CORPUSCULAR VOLUME 83.8 fL (80-94); MONOCYTES # (AUTO) 0.9 K/uL (0.8-1.0); MONOCYTES % (AUTO) 8.7 % (1.7-9.3); NEUTROPHILS # (AUTO) 6.9 K/uL (1.8-7.7); PLATELET COUNT (AUTO) 275 K/uL (140-450); RED BLOOD CELL COUNT(AUTO) 6.36 MIL/uL (4.20-6.10); RED CELL DISTRIBUTION WIDTH 14.1 % (11.6-13.7); WHITE BLOOD COUNT (AUTO) 10.6 K/uL (4.8-10.8)
[2021-04-23 23:36] LABS: ANION GAP 14.4 (8-16); CARBON DIOXIDE 29.3 mmol/L (21-32); CREATININE 1.7 mg/dL (0.6-1.3); POTASSIUM 3.7 mmol/L (3.5-5.1); TOTAL BILIRUBIN 0.4 mg/dL (0.0-1.0)
[2021-04-24] MEDS ORDERED: PRED20TA5 PO (00:21)
[2021-04-24] MEDS ORDERED: ALBU6.7H IH (00:21)
[2021-04-24 00:40] VITALS: BP 146/91
--- NOTE | 2021-04-24 00:40 | NUR ---
Patient discharged with v/s stable. Written and verbal after care instructions given and explained. Patient alert, oriented and verbalized understanding of instructions. Ambulatory with steady gait. All questions addressed prior to discharge. ID band removed. Patient advised to follow up with PMD. Rx of ALBUTEROL AND PREDNISONE given. Patient educated on indication of medication including possible reaction and side effects. Opportunity to ask questions provided and answered.
== END 2021-04-24 00:40 | disposition home or self-care (01) ==
LOC: MED 20:25
DX: R06.02 Shortness of breath (principal); Z20.822 Contact with and (suspected) exposure to COVID-19; R07.9 Chest pain, unspecified; M79.89 Other specified soft tissue disorders; J45.909 Unspecified asthma, uncomplicated; I11.0 Hypertensive heart disease with heart failure; I50.9 Heart failure, unspecified; Z79.899 Other long term (current) drug therapy
CPT/HCPCS: 36415; 71045; 80053; 83880; 84484; 85025; 93005; 99285

== ENCOUNTER 2021-09-04 15:21 | Emergency (ER) | payer MEDICAID ==
[~2021-09-04] VITALS: Ht 190.5 cm; Wt 152.0 kg
[~2021-09-04 15:21] MED LIST changes: +ALBU6.7H IH; +PRED20TA5 PO
[2021-09-04 15:29] VITALS: BP 155/84
[2021-09-04 16:04] LABS: BASOPHILS # (AUTO) 0.1 K/uL (0.00-0.22); BASOPHILS % (AUTO) 1.2 % (0.0-2.0); EOSINOPHILS # (AUTO) 0.2 K/uL (0-0.4); EOSINOPHILS % (AUTO) 2.3 % (0.0-4.0); HEMATOCRIT 46.5 % (36-52); HEMOGLOBIN 15.9 g/dL (12.0-18.0); LYMPHOCYTES # (AUTO) 2.2 K/uL (2.0-11.5); LYMPHOCYTES % (AUTO) 28.2 % (20.5-51.1); MEAN CORPUSCULAR HEMOGLOBIN 28 pg (27-31); MEAN CORPUSCULAR HGB CONC 34 g/dL (33-37); MEAN CORPUSCULAR VOLUME 83.1 fL (80-94); MONOCYTES % (AUTO) 12.8 % (1.7-9.3); NEUTROPHILS # (AUTO) 4.4 K/uL (1.8-7.7); NEUTROPHILS % (AUTO) 55.5 % (42.2-75.2); PLATELET COUNT (AUTO) 198 K/uL (140-450); RED BLOOD CELL COUNT(AUTO) 5.59 MIL/uL (4.20-6.10); RED CELL DISTRIBUTION WIDTH 13.9 % (11.6-13.7); WHITE BLOOD COUNT (AUTO) 7.9 K/uL (4.8-10.8)
--- NOTE | 2021-09-04 16:21 | NUR ---
PT IN ROOM 1 . IN GOWN AND ON THE MONITOR
--- NOTE | 2021-09-04 16:22 | NUR ---
3L 02 PLACED. 96% NC
[2021-09-04 16:24] LABS: ALBUMIN 3.5 g/dL (3.4-5.0); ANION GAP 11.4 (8-16); CARBON DIOXIDE 26.1 mmol/L (21-32); CREATININE 1.4 mg/dL (0.6-1.3); POTASSIUM 3.5 mmol/L (3.5-5.1); TOTAL BILIRUBIN 0.5 mg/dL (0.0-1.0)
--- NOTE | 2021-09-04 17:07 | NUR ---
PT RESTING IN BED RESP EVEN AND UNLABORED
[2021-09-04] MEDS ORDERED: ALBUTEROL SULFATE/IPRATROPIU 3 ML SOL IH ONE (17:20)
[2021-09-04 18:31] VITALS: BP 150/94
--- NOTE | 2021-09-04 18:53 | NUR ---
PT UNABLE TO URINATE FOR UA COLLECTION. ER MD AWARE THAT PT HASNT URINATED SINCE YESTERDAY. ULTRASOUND TO BE DONE AT BEDSIDE
--- NOTE | 2021-09-04 19:16 | NUR ---
BEDSIDE ULTRASOUND DONE BY ER MD
--- NOTE | 2021-09-04 19:20 | NUR ---
REPORT RECEIVED FROM BEULAH MCGRATH. CONTINUITY OF PT CARE AT THIS TIME.
--- NOTE | 2021-09-04 20:21 | NUR ---
Patient discharged. Written and verbal after care instructions given and explained. Patient verbalized understanding. Ambulatory with steady gait. ID band removed. All questions addressed prior to discharge. Advised to follow up with PMD.
== END 2021-09-04 23:32 | disposition home or self-care (01) ==
LOC: MED 15:21
DX: J96.10 Chronic respiratory failure, unspecified whether with hypoxia or hypercapnia (principal); J45.909 Unspecified asthma, uncomplicated; I11.0 Hypertensive heart disease with heart failure; I50.9 Heart failure, unspecified; F17.210 Nicotine dependence, cigarettes, uncomplicated
CPT/HCPCS: 36415; 71045; 80053; 83880; 84484; 85025; 93005; 94640; 99285

== ENCOUNTER 2022-01-04 03:38 | Emergency (ER) | payer MEDICAID ==
[~2022-01-04] VITALS: Ht 190.5 cm; Wt 149.7 kg
--- NOTE | 2022-01-04 03:41 | NUR ---
CALLED PT TO TRIAGE, PT IN RR.
[2022-01-04 03:49] VITALS: BP 180/116
--- NOTE | 2022-01-04 03:56 | NUR ---
pt to bed12
--- NOTE | 2022-01-04 04:00 | NUR ---
ASSUME CARE OF PT, PT AMBULATED TO ED 12 FROM TRIAGE, REPORT GIVEN BY ANANT SOLOMON, PT C/O CP SUBSTERNAL RADIATES TO LEFT ARM, CP SINCE 1800 YESTERDAY, PT WAITED BECAUSE HE THOUGHT IT WOULD GO AWAY BUT THE PAIN IS 10/10. PT STATES HE WAS WORKING WHEN HE FELT HIS PAIN GET WORSE. PT IS ON O2 2L AT HOME. HX- HTN, CHF
--- NOTE | 2022-01-04 04:02 | NUR ---
PT PLACED ON MANAGER PLANT AND EKG COMPLETE.
--- NOTE | 2022-01-04 04:06 | NUR ---
rad at bedside
--- NOTE | 2022-01-04 04:06 | NUR ---
labs at bedside
[2022-01-04 04:22] LABS: BASOPHILS # (AUTO) 0.2 K/uL (0.00-0.22); BASOPHILS % (AUTO) 1.6 % (0.0-2.0); EOSINOPHILS # (AUTO) 0.2 K/uL (0-0.4); HEMATOCRIT 48.5 % (36-52); HEMOGLOBIN 16.5 g/dL (12.0-18.0); LYMPHOCYTES # (AUTO) 2.8 K/uL (2.0-11.5); LYMPHOCYTES % (AUTO) 27.4 % (20.5-51.1); MEAN CORPUSCULAR HEMOGLOBIN 29 pg (27-31); MEAN CORPUSCULAR HGB CONC 34 g/dL (33-37); MEAN CORPUSCULAR VOLUME 84.7 fL (80-94); MONOCYTES % (AUTO) 9.6 % (1.7-9.3); NEUTROPHILS # (AUTO) 6.1 K/uL (1.8-7.7); NEUTROPHILS % (AUTO) 59.4 % (42.2-75.2); PLATELET COUNT (AUTO) 215 K/uL (140-450); RED BLOOD CELL COUNT(AUTO) 5.73 MIL/uL (4.20-6.10); RED CELL DISTRIBUTION WIDTH 14.3 % (11.6-13.7); WHITE BLOOD COUNT (AUTO) 10.2 K/uL (4.8-10.8)
[2022-01-04] MEDS ORDERED: KETOROLAC 30 MG/ML VIAL IVP ONE (04:25)
[2022-01-04 04:51] LABS: ALBUMIN 3.6 g/dL (3.4-5.0); ANION GAP 14.6 (8-16); CARBON DIOXIDE 28.3 mmol/L (21-32); CREATININE 1.7 mg/dL (0.6-1.3); POTASSIUM 3.9 mmol/L (3.5-5.1); TOTAL BILIRUBIN 0.5 mg/dL (0.0-1.0)
--- NOTE | 2022-01-04 05:00 | NUR ---
PT ASLEEP IN BED. NO DISTRESS OBSERVED. PT WEARS CPAP AT NIGHT.
[2022-01-04 08:03] VITALS: BP 147/83
== END 2022-01-04 08:07 | disposition home or self-care (01) ==
LOC: MED 03:38
DX: R07.89 Other chest pain (principal); N17.9 Acute kidney failure, unspecified; J45.909 Unspecified asthma, uncomplicated; I50.9 Heart failure, unspecified; I11.0 Hypertensive heart disease with heart failure; Z79.899 Other long term (current) drug therapy
CPT/HCPCS: 36415; 71045; 80053; 83880; 84484; 85025; 85379; 86886; 86900; 86901; 93005; 96374; 99285; J1885; Q0092

== ENCOUNTER 2022-03-31 19:43 | Emergency (ER) | payer MEDICAID ==
[~2022-03-31] VITALS: Ht 188 cm; Wt 149.7 kg
[~2022-03-31 19:43] MED LIST changes: -ACET-8386 PO; +ACET-8905 PO; -ALBU6.7H IH; +ALBU6.7H6 IH
[2022-03-31 19:50] VITALS: BP 150/104
--- NOTE | 2022-03-31 19:54 | NUR ---
TO LOBBY A/W BED AMBULATORY
--- NOTE | 2022-03-31 21:30 | NUR ---
PT TO BED 07.
--- NOTE | 2022-03-31 21:52 | NUR ---
Patient stated his BP decreased due to him "taking Nifedipine 60mg."
--- NOTE | 2022-03-31 22:50 | NUR ---
Patient lying in bed resting with eyes closed, A/Ox4, chest rise and fall symmetrical, no c/o pain or s/s of distress.
[2022-03-31] MEDS ORDERED: ASPIRIN 325 MG TAB PO ONE (23:05)
[2022-03-31] MEDS ORDERED: NITROGLYCERIN 2% 1 GM PKT TP ONE (23:05)
[2022-03-31] MEDS ORDERED: MORPHINE SULFATE 4 MG/ML SYR IVP ONE (23:05)
--- NOTE | 2022-04-01 00:01 | NUR ---
Patient lying in bed resting with eyes closed, A/Ox4, chest rise and fall symmetrical, no c/o pain or s/s of distress.
--- NOTE | 2022-04-01 01:43 | NUR ---
X-RAY AT BEDSIDE.
[2022-04-01 01:58] LABS: BASOPHILS # (AUTO) 0.1 K/uL (0.00-0.22); BASOPHILS % (AUTO) 1.3 % (0.0-2.0); EOSINOPHILS # (AUTO) 0.2 K/uL (0-0.4); EOSINOPHILS % (AUTO) 2.8 % (0.0-4.0); HEMATOCRIT 46.2 % (36-52); HEMOGLOBIN 15.6 g/dL (12.0-18.0); LYMPHOCYTES # (AUTO) 2.6 K/uL (2.0-11.5); LYMPHOCYTES % (AUTO) 29.8 % (20.5-51.1); MEAN CORPUSCULAR HEMOGLOBIN 29 pg (27-31); MEAN CORPUSCULAR HGB CONC 34 g/dL (33-37); MEAN CORPUSCULAR VOLUME 84.6 fL (80-94); MONOCYTES # (AUTO) 0.8 K/uL (0.8-1.0); MONOCYTES % (AUTO) 8.6 % (1.7-9.3); NEUTROPHILS % (AUTO) 57.5 % (42.2-75.2); PLATELET COUNT (AUTO) 197 K/uL (140-450); RED BLOOD CELL COUNT(AUTO) 5.46 MIL/uL (4.20-6.10); RED CELL DISTRIBUTION WIDTH 14.3 % (11.6-13.7); WHITE BLOOD COUNT (AUTO) 8.8 K/uL (4.8-10.8)
[2022-04-01 02:21] LABS: ALBUMIN 3.4 g/dL (3.4-5.0); CARBON DIOXIDE 25.8 mmol/L (21-32); CREATININE 1.3 mg/dL (0.6-1.3); POTASSIUM 3.8 mmol/L (3.5-5.1); TOTAL BILIRUBIN 0.3 mg/dL (0.0-1.0)
[2022-04-01] MEDS ORDERED: FUROSEMIDE 40 MG/4 ML VIAL IVP ONE (03:20)
[2022-04-01 04:06] VITALS: BP 133/81
--- NOTE | 2022-04-01 04:06 | NUR ---
D/C BY .Patient discharged with v/s stable. Written and verbal after care instructions given and explained. Patient verbalized understanding. Ambulatory with steady gait. All questions addressed prior to discharge. Advised to follow up with PMD.
== END 2022-04-01 03:54 | disposition home or self-care (01) ==
LOC: MED 19:43
DX: I11.0 Hypertensive heart disease with heart failure (principal); I50.9 Heart failure, unspecified; R07.89 Other chest pain; R51.9 Headache, unspecified; J45.909 Unspecified asthma, uncomplicated; Z79.899 Other long term (current) drug therapy
CPT/HCPCS: 36415; 71045; 80053; 83880; 84484; 85025; 93005; 96374; 96375; 99285; J1940; J2270; Q0092

== ENCOUNTER 2022-05-07 20:08 | Emergency (ER) | payer MEDICAID ==
[~2022-05-07] VITALS: Ht 188 cm; Wt 156.9 kg
[2022-05-07 20:55] VITALS: BP 151/79
--- NOTE | 2022-05-07 22:34 | NUR ---
PT TO BED #2
[2022-05-07] MEDS ORDERED: LIDOCAINE 5% 1 EA PATCH TP SCH (22:50)
[2022-05-07] MEDS ORDERED: KETOROLAC 30 MG/ML VIAL IM ONE (22:50)
--- NOTE | 2022-05-07 22:50 | NUR ---
ERMD by bedside
[2022-05-07 23:02] LABS: BASOPHILS # (AUTO) 0.1 K/uL (0.00-0.22); BASOPHILS % (AUTO) 0.9 % (0.0-2.0); EOSINOPHILS # (AUTO) 0.2 K/uL (0-0.4); EOSINOPHILS % (AUTO) 2.2 % (0.0-4.0); HEMATOCRIT 43.6 % (36-52); HEMOGLOBIN 14.8 g/dL (12.0-18.0); LYMPHOCYTES # (AUTO) 2.8 K/uL (2.0-11.5); LYMPHOCYTES % (AUTO) 30.8 % (20.5-51.1); MEAN CORPUSCULAR HEMOGLOBIN 29 pg (27-31); MEAN CORPUSCULAR HGB CONC 34 g/dL (33-37); MEAN CORPUSCULAR VOLUME 84.1 fL (80-94); MONOCYTES # (AUTO) 0.9 K/uL (0.8-1.0); MONOCYTES % (AUTO) 9.5 % (1.7-9.3); NEUTROPHILS # (AUTO) 5.1 K/uL (1.8-7.7); NEUTROPHILS % (AUTO) 56.6 % (42.2-75.2); PLATELET COUNT (AUTO) 197 K/uL (140-450); RED BLOOD CELL COUNT(AUTO) 5.19 MIL/uL (4.20-6.10); RED CELL DISTRIBUTION WIDTH 13.7 % (11.6-13.7); WHITE BLOOD COUNT (AUTO) 9.1 K/uL (4.8-10.8)
--- NOTE | 2022-05-07 23:02 | NUR ---
Xray by bedside
[2022-05-07 23:26] LABS: ANION GAP 12.7 (8-16); ASPARTATE AMINOTRANSFERASE 17 U/L (15-37); CARBON DIOXIDE 27.2 mmol/L (21-32); CHLORIDE 107 mmol/L (98-107); CREATININE 1.3 mg/dL (0.6-1.3); GFR ARICAN-AMERICAN 77 mL/min (>90); GLUCOSE 105 mg/dL (74-106); POTASSIUM 3.9 mmol/L (3.5-5.1); SODIUM SERUM 143 mmol/L (136-145); TOTAL BILIRUBIN 0.3 mg/dL (0.0-1.0); UREA NITROGEN, BLOOD 15 mg/dL (7-18)
--- NOTE | 2022-05-08 00:02 | NUR ---
ERMD by bedside
[2022-05-08] MEDS ORDERED: NAPR-54 PO (00:13)
[2022-05-08] MEDS ORDERED: CYCL-711 PO (00:13)
[2022-05-08] MEDS ORDERED: AMOX-1230 PO (00:13)
[2022-05-08] MEDS ORDERED: AZIT250T11 PO (00:13)
[2022-05-08] MEDS ORDERED: HYDROcodone/APAP 5/325 MG 1 TAB TAB PO ONE (00:15)
[2022-05-08 00:21] VITALS: BP 143/86
--- NOTE | 2022-05-08 00:23 | NUR ---
Patient discharged with v/s stable. Written and verbal after care instructions given and explained. Patient verbalized understanding. Ambulatory with steady gait. Pt taken home by friend. New orders of amox/potassium clav, flexeril, azithromycin, and naproxen. All questions addressed prior to discharge. Advised to follow up with PMD.
== END 2022-05-08 00:20 | disposition home or self-care (01) ==
LOC: MED 20:08
DX: J18.1 Lobar pneumonia, unspecified organism (principal); M62.838 Other muscle spasm; J45.909 Unspecified asthma, uncomplicated; I11.0 Hypertensive heart disease with heart failure; I50.9 Heart failure, unspecified; F17.210 Nicotine dependence, cigarettes, uncomplicated; Z79.899 Other long term (current) drug therapy
CPT/HCPCS: 36415; 71045; 80053; 84484; 85025; 85379; 93005; 96372; 99285; J1885; Q0092

== ENCOUNTER 2022-09-24 23:11 | Emergency (ER) | payer OTHER, MEDICAID ==
[~2022-09-24] VITALS: Ht 190.5 cm; Wt 136.1 kg
[~2022-09-24 23:11] MED LIST changes: +AMOX-1230 PO; +AZIT250T11 PO; +CYCL-711 PO; +NAPR-54 PO
[2022-09-24 23:13] VITALS: BP 142/97; PULSE 84; RESP 16; TEMP 98.4
--- NOTE | 2022-09-24 23:30 | NUR ---
PT TAKEN TO BED 4
--- NOTE | 2022-09-24 23:37 | NUR ---
Dr. Armstrong examining patient.
[2022-09-24] MEDS ORDERED: KETOROLAC 30 MG/ML VIAL IVP ONE (23:45)
--- NOTE | 2022-09-24 23:59 | NUR ---
X-Ray at bedside.
[2022-09-25 00:01] LABS: BASOPHILS # (AUTO) 0.1 K/uL (0.00-0.22); EOSINOPHILS # (AUTO) 0.2 K/uL (0-0.4); EOSINOPHILS % (AUTO) 2.2 % (0.0-4.0); HEMATOCRIT 43.9 % (36-52); HEMOGLOBIN 15.1 g/dL (12.0-18.0); LYMPHOCYTES # (AUTO) 2.4 K/uL (2.0-11.5); LYMPHOCYTES % (AUTO) 27.5 % (20.5-51.1); MEAN CORPUSCULAR HEMOGLOBIN 29 pg (27-31); MEAN CORPUSCULAR HGB CONC 34 g/dL (33-37); MEAN CORPUSCULAR VOLUME 83.5 fL (80-94); MONOCYTES # (AUTO) 0.9 K/uL (0.8-1.0); MONOCYTES % (AUTO) 10.5 % (1.7-9.3); NEUTROPHILS # (AUTO) 5.1 K/uL (1.8-7.7); NEUTROPHILS % (AUTO) 58.8 % (42.2-75.2); PLATELET COUNT (AUTO) 206 K/uL (140-450); RED BLOOD CELL COUNT(AUTO) 5.25 MIL/uL (4.20-6.10); RED CELL DISTRIBUTION WIDTH 14.1 % (11.6-13.7); WHITE BLOOD COUNT (AUTO) 8.7 K/uL (4.8-10.8)
--- NOTE | 2022-09-25 00:11 | NUR ---
PT TAKEN TO CT
--- NOTE | 2022-09-25 00:17 | NUR ---
PT RETURN FROM CT
[2022-09-25 00:22] LABS: ALBUMIN 3.5 g/dL (3.4-5.0); CARBON DIOXIDE 26.2 mmol/L (21-32); CREATININE 1.3 mg/dL (0.6-1.3); POTASSIUM 3.2 mmol/L (3.5-5.1); TOTAL BILIRUBIN 0.4 mg/dL (0.0-1.0)
[2022-09-25 02:00] VITALS: BP 145/86; PULSE 80; RESP 31; O2SAT 91
--- NOTE | 2022-09-25 02:55 | NUR ---
pt continues to refuse a UA, Dr. Armstrong notified
--- NOTE | 2022-09-25 03:00 | NUR ---
Patient discharged with v/s stable. Written and verbal after care instructions given and explained. Patient verbalized understanding. Ambulatory with steady gait. All questions addressed prior to discharge. Advised to follow up with PMD. Dr. Armstrong's orders reinforced
[2022-10-19] MEDS ORDERED: AZIT250T4 PO (17:08)
[2022-10-19] MEDS ORDERED: ACET-8905 PO (17:08)
== END 2022-09-25 03:00 | disposition home or self-care (01) ==
LOC: MED 23:11
DX: S09.90XA Unspecified injury of head, initial encounter (principal); F07.81 Postconcussional syndrome; R55 Syncope and collapse; I11.0 Hypertensive heart disease with heart failure; J45.909 Unspecified asthma, uncomplicated; Z79.899 Other long term (current) drug therapy; V49.88XA Car occupant (driver) (passenger) injured in other specified transport accidents, initial encounter; Y93.89 Activity, other specified; Y92.89 Other specified places as the place of occurrence of the external cause; Y99.8 Other external cause status
CPT/HCPCS: 36415; 70450; 71045; 80053; 83605; 83880; 84484; 85025; 87040; 93005; 96374; 99285; J1885; Q0092

== ENCOUNTER 2022-10-18 19:59 | Emergency (ER) | payer MEDICAID ==
[~2022-10-18] VITALS: Ht 190.5 cm; Wt 149.7 kg
[2022-10-18 20:05] VITALS: BP 144/84; PULSE 86; RESP 17; TEMP 98; O2SAT 96
--- NOTE | 2022-10-18 20:14 | NUR ---
PT TAKEN TO BED 6 AMBULATORY
--- NOTE | 2022-10-18 20:26 | NUR ---
Patient being evaluated by physician at bedside.
--- NOTE | 2022-10-18 20:30 | NUR ---
47 Y/O M bib self from home presents with chest pain 10/10 sharp and tingling rad to L shoulder xtoday. pt stated he took aspirin with no relief. has nv with headaches. pt is A&ox4, skin intact, ambulatory. pmh-chf, htn nka
[2022-10-18 20:42] LABS: BASOPHILS # (AUTO) 0.1 K/uL (0.00-0.22); EOSINOPHILS # (AUTO) 0.2 K/uL (0-0.4); EOSINOPHILS % (AUTO) 2.7 % (0.0-4.0); HEMATOCRIT 41.7 % (36-52); HEMOGLOBIN 14.4 g/dL (12.0-18.0); LYMPHOCYTES # (AUTO) 2.5 K/uL (2.0-11.5); LYMPHOCYTES % (AUTO) 29.5 % (20.5-51.1); MEAN CORPUSCULAR HEMOGLOBIN 29 pg (27-31); MEAN CORPUSCULAR HGB CONC 34 g/dL (33-37); MEAN CORPUSCULAR VOLUME 83.8 fL (80-94); MONOCYTES % (AUTO) 12.2 % (1.7-9.3); NEUTROPHILS # (AUTO) 4.6 K/uL (1.8-7.7); NEUTROPHILS % (AUTO) 54.6 % (42.2-75.2); PLATELET COUNT (AUTO) 214 K/uL (140-450); RED BLOOD CELL COUNT(AUTO) 4.98 MIL/uL (4.20-6.10); RED CELL DISTRIBUTION WIDTH 13.9 % (11.6-13.7); WHITE BLOOD COUNT (AUTO) 8.4 K/uL (4.8-10.8)
[2022-10-18 20:50] LABS: ANION GAP 8.4 (8-16); CREATININE 1.4 mg/dL (0.6-1.3); POTASSIUM 3.4 mmol/L (3.5-5.1)
[2022-10-18 21:00] VITALS: O2SAT 96
--- NOTE | 2022-10-18 21:43 | NUR ---
Patient discharged with v/s stable. Written and verbal after care instructions given and explained. Patient verbalized understanding. Ambulatory with . All questions addressed prior to discharge. Advised to follow up with PMD.
[2022-10-19] MEDS ORDERED: ACET-8905 PO (17:08)
[2022-10-19] MEDS ORDERED: AZIT250T4 PO (17:08)
== END 2022-10-18 21:43 | disposition home or self-care (01) ==
LOC: MED 19:59
DX: R07.9 Chest pain, unspecified (principal); J45.909 Unspecified asthma, uncomplicated; I11.0 Hypertensive heart disease with heart failure; I50.9 Heart failure, unspecified; Z79.899 Other long term (current) drug therapy; Z79.2 Long term (current) use of antibiotics; Z79.1 Long term (current) use of non-steroidal anti-inflammatories (NSAID)
CPT/HCPCS: 36415; 71045; 80048; 83880; 84484; 85025; 93005; 99285; Q0092

== ENCOUNTER 2023-03-31 04:53 | Emergency (ER) | payer MEDICAID ==
[~2023-03-31] VITALS: Ht 190.5 cm; Wt 154.7 kg
[~2023-03-31 04:53] MED LIST changes: +AZIT250T4 PO
[2023-03-31 05:09] VITALS: BP 137/78; PULSE 90; RESP 17; TEMP 98.1; O2SAT 95
[2023-03-31] MEDS ORDERED: LIDOCAINE MPF 1% 10 MG/ML VIAL INJ ONE (05:25)
[2023-03-31] MEDS ORDERED: CEPH-588 PO (05:52)
[2023-03-31 05:55] VITALS: BP 137/78; PULSE 90; RESP 17; TEMP 98.1; O2SAT 95
== END 2023-03-31 05:55 | disposition home or self-care (01) ==
LOC: MED 04:53
DX: L02.31 Cutaneous abscess of buttock (principal); L73.9 Follicular disorder, unspecified; J45.909 Unspecified asthma, uncomplicated; I11.0 Hypertensive heart disease with heart failure; I50.9 Heart failure, unspecified; Z95.5 Presence of coronary angioplasty implant and graft; Z79.899 Other long term (current) drug therapy; Z79.2 Long term (current) use of antibiotics
CPT/HCPCS: 10060; 99283; J2001

== ENCOUNTER 2023-06-23 11:38 | Emergency (ER) | payer MEDICAID ==
[~2023-06-23] VITALS: Ht 190.5 cm; Wt 157.6 kg
[~2023-06-23 11:38] MED LIST changes: +CEPH-588 PO
[2023-06-23 11:53] VITALS: BP 159/82; PULSE 110; RESP 19; TEMP 98.4; O2SAT 94
[2023-06-23 12:56] LABS: BASOPHILS # (AUTO) 0.1 K/uL (0.00-0.22); EOSINOPHILS # (AUTO) 0.2 K/uL (0-0.4); MONOCYTES # (AUTO) 1.1 K/uL (0.8-1.0); NEUTROPHILS # (AUTO) 5.3 K/uL (1.8-7.7)
[2023-06-23] MEDS: methocarbamoL 500 MG TAB PO ONE (12:59)
[2023-06-23 13:00] LABS: BASOPHILS % (AUTO) 1.2 % (0.0-2.0); EOSINOPHILS % (AUTO) 2.2 % (0.0-4.0); LYMPHOCYTES # (AUTO) 2.4 K/uL (2.0-11.5); LYMPHOCYTES % (AUTO) 26.1 % (20.5-51.1); MEAN CORPUSCULAR HEMOGLOBIN 29 pg (27-31); MEAN CORPUSCULAR HGB CONC 35 g/dL (33-37); MEAN CORPUSCULAR VOLUME 83.7 fL (80-94); MONOCYTES % (AUTO) 11.8 % (1.7-9.3); NEUTROPHILS % (AUTO) 58.7 % (42.2-75.2); PLATELET COUNT (AUTO) 224 K/uL (140-450); RED BLOOD CELL COUNT(AUTO) 5.85 MIL/uL (4.20-6.10); RED CELL DISTRIBUTION WIDTH 13.9 % (11.6-13.7)
[2023-06-23] MEDS: ACETAMINOPHEN EXTRA STRENGTH 500 MG TAB PO ONE (13:01)
[2023-06-23 13:03] LABS: HEMOGLOBIN 17.1 g/dL (12.0-18.0)
[2023-06-23] MEDS: KETOROLAC 30 MG/ML VIAL IM ONE (13:05)
[2023-06-23 13:08] LABS: CALCIUM 8.9 mg/dL (8.5-10.1); CARBON DIOXIDE 26.7 mmol/L (21-32); CREATININE 1.4 mg/dL (0.6-1.3)
[2023-06-23] MEDS: LIDOCAINE 5% 1 EA PATCH TP ONE (13:08)
[2023-06-23 13:11] LABS: POTASSIUM 3.6 mmol/L (3.5-5.1)
[2023-06-23 13:14] LABS: ANION GAP 12.9 (8-16)
[2023-06-23] MEDS ORDERED: ACET-8905 PO (14:02)
[2023-06-23] MEDS ORDERED: LID5T TP (14:02)
[2023-06-23] MEDS ORDERED: METH-1681 PO (14:02)
[2023-06-23] MEDS: MORPHINE SULFATE 4 MG/ML SYR IM ONE (14:33)
[2023-06-23 14:38] VITALS: BP 138/85; PULSE 102; RESP 19; TEMP 98.4; O2SAT 96
== END 2023-06-23 14:38 | disposition home or self-care (01) ==
LOC: MED 11:38
DX: M54.50 Low back pain, unspecified (principal); R07.9 Chest pain, unspecified; I11.0 Hypertensive heart disease with heart failure; I50.9 Heart failure, unspecified; J45.909 Unspecified asthma, uncomplicated; F17.200 Nicotine dependence, unspecified, uncomplicated; Z79.899 Other long term (current) drug therapy
CPT/HCPCS: 36415; 71045; 80048; 84484; 85025; 93005; 96372; 99285; J1885; J2270

== ENCOUNTER 2023-07-23 12:51 | Emergency (ER) | payer MEDICAID ==
[~2023-07-23] VITALS: Ht 190.5 cm; Wt 140.6 kg
[~2023-07-23 12:51] MED LIST changes: +LID5T TP; +METH-1681 PO
[2023-07-23 13:02] VITALS: BP 145/99; PULSE 112; RESP 20; TEMP 98.3; O2SAT 93
[2023-07-23 14:12] LABS: BASOPHILS # (AUTO) 0.1 K/uL (0.00-0.22); BASOPHILS % (AUTO) 1.1 % (0.0-2.0); EOSINOPHILS # (AUTO) 0.1 K/uL (0-0.4); EOSINOPHILS % (AUTO) 1.5 % (0.0-4.0); HEMATOCRIT 54.1 % (36-52); HEMOGLOBIN 18.8 g/dL (12.0-18.0); LYMPHOCYTES # (AUTO) 2.7 K/uL (2.0-11.5); LYMPHOCYTES % (AUTO) 28.2 % (20.5-51.1); MEAN CORPUSCULAR HEMOGLOBIN 29 pg (27-31); MEAN CORPUSCULAR HGB CONC 35 g/dL (33-37); MEAN CORPUSCULAR VOLUME 82.6 fL (80-94); MONOCYTES # (AUTO) 1.2 K/uL (0.8-1.0); MONOCYTES % (AUTO) 13.1 % (1.7-9.3); NEUTROPHILS # (AUTO) 5.3 K/uL (1.8-7.7); NEUTROPHILS % (AUTO) 56.1 % (42.2-75.2); PLATELET COUNT (AUTO) 244 K/uL (140-450); RED BLOOD CELL COUNT(AUTO) 6.55 MIL/uL (4.20-6.10); RED CELL DISTRIBUTION WIDTH 14.5 % (11.6-13.7); WHITE BLOOD COUNT (AUTO) 9.5 K/uL (4.8-10.8)
[2023-07-23 14:31] LABS: ANION GAP 12.7 (8-16); CALCIUM 9.5 mg/dL (8.5-10.1); CARBON DIOXIDE 26.8 mmol/L (21-32); CREATININE 1.5 mg/dL (0.6-1.3); POTASSIUM 3.5 mmol/L (3.5-5.1)
[2023-07-23] MEDS: ALBUTEROL 0.083% 2.5 MG/3 ML NEBU INH ONE (16:00)
[2023-07-23] MEDS: IPRATROPIUM 0.02% 0.5 MG/2.5 ML NEBU INH ONE (16:00)
== END 2023-07-23 16:19 | disposition left against medical advice (07) ==
LOC: MED 12:51
DX: R07.9 Chest pain, unspecified (principal); M79.602 Pain in left arm; I11.0 Hypertensive heart disease with heart failure; I50.9 Heart failure, unspecified; J45.909 Unspecified asthma, uncomplicated; Z79.1 Long term (current) use of non-steroidal anti-inflammatories (NSAID); Z79.899 Other long term (current) drug therapy
CPT/HCPCS: 36415; 71045; 80048; 83880; 84484; 85025; 85379; 93005; 99285

== ENCOUNTER 2023-10-22 13:04 | Emergency (ER) | payer MEDICAID ==
[~2023-10-22] VITALS: Ht 190.5 cm; Wt 156.5 kg
[~2023-10-22 13:04] MED LIST changes: +NAPR-337 PO; -NAPR-54 PO
[2023-10-22 13:20] VITALS: BP 125/80; PULSE 99; RESP 18; TEMP 97.9; O2SAT 95
[2023-10-22 14:03] LABS: BASOPHILS # (AUTO) 0.1 K/uL (0.00-0.22); BASOPHILS % (AUTO) 0.6 % (0.0-2.0); EOSINOPHILS # (AUTO) 0.2 K/uL (0-0.4); EOSINOPHILS % (AUTO) 1.9 % (0.0-4.0); HEMOGLOBIN 15.8 g/dL (12.0-18.0); LYMPHOCYTES % (AUTO) 22.4 % (20.5-51.1); MEAN CORPUSCULAR HEMOGLOBIN 28 pg (27-31); MEAN CORPUSCULAR HGB CONC 34 g/dL (33-37); MEAN CORPUSCULAR VOLUME 83.9 fL (80-94); MONOCYTES % (AUTO) 10.9 % (1.7-9.3); NEUTROPHILS # (AUTO) 5.7 K/uL (1.8-7.7); NEUTROPHILS % (AUTO) 64.2 % (42.2-75.2); PLATELET COUNT (AUTO) 223 K/uL (140-450); RED CELL DISTRIBUTION WIDTH 14.3 % (11.6-13.7); WHITE BLOOD COUNT (AUTO) 8.9 K/uL (4.8-10.8)
[2023-10-22 14:14] LABS: ANION GAP 11.8 (8-16); CALCIUM 8.7 mg/dL (8.5-10.1); CARBON DIOXIDE 25.7 mmol/L (21-32); CREATININE 1.5 mg/dL (0.6-1.3); POTASSIUM 3.5 mmol/L (3.5-5.1)
[2023-10-22] MEDS ORDERED: FURO-572 PO (15:03)
[2023-10-22 15:14] VITALS: BP 119/64; PULSE 85; RESP 24; O2SAT 96
[2023-10-22] MEDS: FUROSEMIDE 20 MG TAB PO ONE (15:29)
== END 2023-10-22 15:38 | disposition home or self-care (01) ==
LOC: MED 13:04
DX: R07.89 Other chest pain (principal); J45.909 Unspecified asthma, uncomplicated; I11.0 Hypertensive heart disease with heart failure; I50.9 Heart failure, unspecified; Z79.1 Long term (current) use of non-steroidal anti-inflammatories (NSAID); Z79.2 Long term (current) use of antibiotics; Z79.899 Other long term (current) drug therapy
CPT/HCPCS: 36415; 71045; 80048; 83880; 84484; 85025; 93005; 99285